=== PATIENT | male | born 1960 | race Caucasian/White ===

== ENCOUNTER → 2016-11-24 | Outpatient (CLI) | payer BC, OTHER ==
--- NOTE | 2016-11-24 15:14 | RADONC ---
RADIATION ONCOLOGY CONSULTATION: DATE: 11/24/2016 CHART NUMBER: [id number] DIAGNOSIS: Prostate cancer. STAGE: II B, [id number] ECOG PERFORMANCE STATUS: 0 Mr. 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 HISTORY OF PRESENT ILLNESS: The patient was in his usual state of health but was found to have a rising PSA level which reached 2.78. On 08/26/2016, the patient underwent prostatic needle biopsy and pathology revealed a Mcdonald score 7 (3-4) adenocarcinoma of prostate. Tumor involved both the left and right side of the prostate. The patient has done well since surgery and is now presenting for discussion of definitive external beam radiation therapy with IMRT/IGRT versus a robotic-assisted surgical resection. PAST MEDICAL HISTORY: The patient's past medical history is positive for some anxiety, depression and bipolar disorder. He has had previous right foot surgery and right hernia surgery. ALLERGIES: The patient has NO KNOWN DRUG ALLERGIES. SOCIAL HISTORY: The patient smokes one pack of cigarettes per day for the last 28 years. He does not abuse alcohol. FAMILY HISTORY: The patient's family history is unknown. REVIEW OF SYSTEMS: The patient's review of systems is positive for some occasional dizziness, anxiety and depression, decreased energy and occasional left lower back pain. He also has occasional left hip pain. He wears glasses. He denies nausea, vomiting, fevers, chills, night sweats, diplopia, headaches, chest pain, rectal bleeding, urinary or bowel difficulties, bone pain other than his low back pain and neurological problems. PHYSICAL EXAMINATION: The patient is a well-developed, well-nourished male in no acute distress. HEENT exam is normocephalic, atraumatic. Extraocular movements are intact. There is no palpable cervical, supraclavicular, infraclavicular, axillary, or inguinal lymphadenopathy present. Lungs are clear to auscultation and percussion. Heart has a regular rate and rhythm. Abdomen is benign with no hepatosplenomegaly, masses, or tenderness. Rectal examination reveals a normal anal sphincter tone. His prostate is smooth with no evidence of nodularity. Skeletal examination reveals no tenderness to pressure or percussion of the bony skeleton. Extremities reveal no clubbing, cyanosis, or edema. Neurologic exam is grossly intact, as is the remainder of the physical examination. MEDICAL NECESSITY: IMRT/IGRT is clinically indicated for the highly conformal dose planning required. The target volume is in close proximity to critical structures, such as the rectum, bladder, small bowel, and femoral heads. The volume of interest must be covered with narrow margins to adequately protect immediately adjacent structures. The plan requires interpretation of complex testing such as CT localization. As noted above, special planning (IMRT) and localizing (IGRT) is required and essential to maximally protect sensitive normal tissue structures which cannot be accomplished using conventional 3-dimensional planning. ASSESSMENT: Clearly the patient is a candidate for external beam radiation therapy and I have so informed him. I have discussed with the patient in detail the potential benefits as well as possible acute and chronic sequelae of external beam radiation therapy. We have discussed logistics of treatment planning, simulation and subsequent fractionated daily radiation treatment. In addition, we discussed his alternative treatment such as surgery. Again we discussed in length the potential benefits and possible sequelae of surgical intervention as well. I made clear to the patient that I think he would be a candidate for either modality. The patient has not yet made up his mind as to which treatment he desires. In light of this, I have not scheduled him for anything in our office at this time. I let him know that we are available to him at anytime if he decides he wants treatment here. He told me he would be calling us when he makes a decision. We also discussed the placement of fiducial markers, which would occur before initiation of treatment planning in our office should he choose definitive external beam radiation. cc: Avel Varela Jr, MD Po Lam, MD Neil F Mariados, MD
--- NOTE | 2017-02-17 07:58 | RADONC ---
RADIATION ONCOLOGY PROGRESS NOTE DATE: 02/15/2017 CHART NUMBER: [id number] Mr. Devine is presently at a dose of 540 cGy to his prostate and is tolerating treatments quite well at this point with no complaints related to his radiation therapy. He is having no urinary or bowel difficulties and no bone pain. The patient's review of systems is noncontributory. He denies nausea, vomiting, fevers, chills, night sweats, diplopia, headaches, anxiety or depression, anorexia, weight loss, visual disturbances, chest pain, urinary or bowel difficulties, bone pain, or neurological problems. PHYSICAL EXAMINATION: The patient's skin is in good condition with no evidence of radiation change present. There is no moist or dry desquamation. The remainder of his physical exam remains unchanged. Mr. Devine is tolerating treatments quite well and radiation will continue as scheduled.
== END ==
LOC: M ONCR 13:01
PROVIDERS: ATTEND Radiology Radiation Oncology
DX: C61 Malignant neoplasm of prostate (principal)

== ENCOUNTER 2017-01-25 11:10 | Outpatient (RCR) | payer BC, OTHER ==
--- NOTE | 2017-01-26 07:23 | RADONC ---
RADIATION ONCOLOGY SIMULATION NOTE DATE: 01/25/2017 CHART NUMBER: [id number] Mr. Devine was taken to the CT scan for CT simulation of his prostate field. CT was accomplished without difficulty or discomfort. Radiation treatment planning is underway and radiation treatments will begin subsequently. An immobilization device was created without difficulty or discomfort. It will be used throughout the course of treatment. I was physically present throughout the course of CT simulation.
== END 2017-02-16 ==
LOC: M ONCR 11:10
PROVIDERS: ATTEND Radiology Radiation Oncology
DX: C61 Malignant neoplasm of prostate (principal)

== ENCOUNTER → 2017-01-25 | Outpatient (CLI) | payer BC, OTHER ==
[2017-01-25 11:55] LABS: MEAN CORPUSCULAR HEMOGLOBIN 31.4 pg (27.0-33.0); MEAN CORPUSCULAR HGB CONC 33.5 g/dl (32.0-36.5); MEAN CORPUSCULAR VOLUME 93.7 fl (80.0-96.0); RED CELL DISTRIBUTION WIDTH 12.3 % (11.5-14.5); WHITE BLOOD COUNT 9.9 10^3/uL (4.0-10.0)
== END ==
LOC: M RAD 10:30
PROVIDERS: ATTEND Radiology Radiation Oncology
DX: C61 Malignant neoplasm of prostate (principal)

== ENCOUNTER 2017-02-17 14:58 | Outpatient (RCR) | payer BC, OTHER ==
--- NOTE | 2017-02-23 16:35 | RADONC ---
RADIATION ONCOLOGY PROGRESS NOTE DATE: 02/22/2017 CHART NUMBER: [id number]. PROGRESS NOTE: Mr. Devine is presently a dose of 1440 cGy to his prostate and is tolerating treatments quite well at this point with no complaints related to his radiation therapy. He is having no urinary or bowel difficulties and no bone pain. REVIEW OF SYSTEMS: The patient's review of systems is noncontributory. Denies nausea, vomiting, fevers, chills, night sweats, diplopia, headaches, anxiety or depression, anorexia, weight loss, visual disturbances, chest pain, urinary or bowel difficulties, bone pain, or neurological problems. PHYSICAL EXAMINATION: The patient's skin is in good condition with no evidence of radiation change present. There is no moist or dry desquamation. The remainder of his physical exam remains unchanged. Mr. Devine is tolerating treatments quite well and radiation will continue as scheduled.
--- NOTE | 2017-03-02 07:41 | RADONC ---
RADIATION ONCOLOGY PROGRESS NOTE DATE: 03/01/2017 CHART NUMBER: [id number] Mr. Devine is presently at a dose of 2340 cGy to his prostate and is tolerating treatments quite well at this point with no difficulties related to his radiation therapy. He is having no urinary or bowel problems and no bone pain. REVIEW OF SYSTEMS: The patient's review of systems is noncontributory. Denies nausea, vomiting, fevers, chills, night sweats, diplopia, headaches, anxiety or depression, anorexia, weight loss, visual disturbances, chest pain, urinary or bowel difficulties, bone pain, or neurological problems. PHYSICAL EXAMINATION: The patient's skin is in good condition with no evidence of radiation change present. There is no moist or dry desquamation. The remainder of his physical exam remains unchanged. Mr. Devine is tolerating treatments quite well and radiation will continue as scheduled.
--- NOTE | 2017-03-09 07:01 | RADONC ---
RADIATION ONCOLOGY PROGRESS NOTE DATE: 03/08/2017 CHART NUMBER: [id number] Mr. Devine is presently a dose of 3060 cGy to his prostate and is tolerating treatments quite well at this point with no complaints related to his radiation therapy. He is having no urinary or bowel difficulties and no bone pain. REVIEW OF SYSTEMS: The patient's review of systems is noncontributory. He denies nausea, vomiting, fevers, chills, night sweats, diplopia, headaches, anxiety or depression, anorexia, weight loss, visual disturbances, chest pain, urinary or bowel difficulties, bone pain or neurological problems. PHYSICAL EXAMINATION: The patient's skin is in good condition with no evidence of radiation change present. There is no moist or dry desquamation. The remainder of his physical exam remains unchanged. Mr. Devine is tolerating treatments quite well and radiation will continue as scheduled.
--- NOTE | 2017-03-16 05:52 | RADONC ---
RADIATION ONCOLOGY PROGRESS NOTE DATE: 03/15/2017 CHART NUMBER: [id number] Mr. Devine is presently at a dose of 3600 cGy to his prostate and is tolerating treatments quite well at this point with no complaints related to his radiation therapy. He is having no urinary or bowel difficulties. No bone pain. The patient's review of systems is noncontributory. He denies nausea, vomiting, fevers, chills, night sweats, diplopia, headaches, anxiety or depression, anorexia, weight loss, visual disturbances, chest pain, urinary or bowel difficulties, bone pain, or neurological problems. PHYSICAL EXAMINATION: The patient's skin is in good condition with no evidence of radiation change present. There is no moist or dry desquamation. The remainder of his physical exam remains unchanged. Mr. Devine is tolerating treatments quite well and radiation will continue as scheduled.
== END 2017-03-18 ==
LOC: M ONCR 14:58
PROVIDERS: ATTEND Radiology Radiation Oncology
DX: C61 Malignant neoplasm of prostate (principal)

== ENCOUNTER 2017-03-19 14:54 | Outpatient (RCR) | payer BC, OTHER | END 2017-04-18 | LOC: M ONCR 14:54 | DX: C61 Malignant neoplasm of prostate (principal) | CPT/HCPCS: 77300 ==

== ENCOUNTER 2017-04-20 12:03 | Outpatient (RCR) | payer BC, OTHER | END 2017-05-19 | LOC: M ONCR 12:03 | DX: C61 Malignant neoplasm of prostate (principal) | CPT/HCPCS: 77385 ==

== ENCOUNTER → 2017-06-02 | Outpatient (CLI) | payer BC, OTHER ==
[2017-06-02 16:09] LABS: PROSTATIC SPECIFIC AG MONITOR 1.95 NG/ML (< 4.0)
== END ==
LOC: M ONCR 14:45
DX: C61 Malignant neoplasm of prostate (principal)
CPT/HCPCS: 84153

== ENCOUNTER → 2018-06-14 | Outpatient (CLI) | payer BC, OTHER | LOC: M LAB 13:38 | PROVIDERS: ATTEND Radiology Radiation Oncology | DX: C61 Malignant neoplasm of prostate (principal) ==

== ENCOUNTER → 2018-06-15 | Outpatient (CLI) | payer BC, OTHER ==
--- NOTE | 2018-06-20 09:26 | RADONC ---
RADIATION ONCOLOGY FOLLOWUP NOTE DATE: 06/15/2018 CHART NUMBER: [id number] DIAGNOSIS: Prostate cancer. STAGE: IIB, [id number]. ECOG PERFORMANCE STATUS: 0. FOLLOWUP NOTE: Mr. Devine is a very pleasant 57-year-old white male with the diagnosis of a stage IIB, [id number], moderate to poorly differentiated [place] score 7 (3-4) adenocarcinoma of prostate who is presenting to us today for routine followup visit 1 year and 2 months post completion of external beam radiation therapy. The patient presents today reporting that he is doing quite well with no complaints at this time related to his radiation therapy or disease. He is having no urinary or bowel difficulties and no bone pain. The patient's review of systems is noncontributory. He denies nausea, vomiting, fevers, chills, night sweats, diplopia, headaches, anxiety or depression, anorexia, weight loss, visual disturbances, chest pain, urinary or bowel difficulties, bone pain, or neurological problems. PHYSICAL EXAMINATION: The patient is a well-developed, well-nourished male in no acute distress. HEENT exam is normocephalic, atraumatic. Extraocular movements are intact. There is no palpable cervical, supraclavicular, infraclavicular, axillary, or inguinal lymphadenopathy present. Lungs are clear to auscultation and percussion. Heart has a regular rate and rhythm. Abdomen is benign with no hepatosplenomegaly, masses, or tenderness. Rectal examination reveals a normal anal sphincter tone. His prostate is smooth with no evidence of nodularity. Skeletal examination reveals no tenderness to pressure or percussion of the bony skeleton. Extremities reveal no clubbing, cyanosis, or edema. Neurologic exam is grossly intact as is the remainder of the physical examination. ASSESSMENT: The patient is clinically TOSHIA at this time and will be seen by us again in 6 months for further followup. He will also continue to be followed by his other physicians as well. cc: Avel Varela Jr, MD Po Lam, MD Neil F Mariados, MD
== END ==
LOC: M ONCR 14:24
PROVIDERS: ATTEND Radiology Radiation Oncology
DX: C61 Malignant neoplasm of prostate (principal)

== ENCOUNTER → 2018-12-12 | Outpatient (CLI) | payer BC, OTHER | LOC: M LAB 13:16 | PROVIDERS: ATTEND Radiology Radiation Oncology | DX: C61 Malignant neoplasm of prostate (principal) ==

== ENCOUNTER → 2018-12-14 | Outpatient (CLI) | payer BC, OTHER ==
--- NOTE | 2018-12-16 06:26 | RADONC ---
RADIATION ONCOLOGY FOLLOW UP NOTE DATE: 12/14/2018 CHART #: [id number] DIAGNOSIS: Prostate cancer. STAGE: II B, [id number]. ECOG PERFORMANCE STATUS: 0. FOLLOWUP NOTE: Mr. Devine is very pleasant 58-year-old white male with the diagnosis of a stage II B, [id number], moderate to poorly differentiated Carrie score 7 (3-4) adenocarcinoma of the prostate who is presenting to us today for routine followup visit 8 months post completion of external beam radiation therapy. The patient presents today reporting that he is doing quite well with no complaints at this time related to his radiation therapy or disease. He has no urinary or bowel difficulties. No bone pain. REVIEW OF SYSTEMS: The patient's review of systems is noncontributory. Denies nausea, vomiting, fevers, chills, night sweats, diplopia, headaches, anxiety or depression, anorexia, weight loss, visual disturbances, chest pain, urinary or bowel difficulties, bone pain, or neurological problems. PHYSICAL EXAMINATION: The patient is a well-developed, well-nourished male in no acute distress. HEENT exam is normocephalic, atraumatic. Extraocular movements are intact. There is no palpable cervical, supraclavicular, infraclavicular, axillary, or inguinal lymphadenopathy present. Lungs are clear to auscultation and percussion. Heart has a regular rate and rhythm. Abdomen is benign with no hepatosplenomegaly, masses, or tenderness. Rectal examination reveals a normal anal sphincter tone. His prostate is smooth with no evidence of nodularity. Skeletal examination reveals no tenderness to pressure or percussion of the bony skeleton. Extremities reveal no clubbing, cyanosis, or edema. Neurologic exam is grossly intact, as is the remainder of the physical examination. ASSESSMENT: The patient is clinically TOSHIA at this time and will be seen by us again in 6 months for further followup. He will also continue to be followed by his other physicians as well. cc: Avel Varela Jr, MD Po Lam, MD Neil F Mariados, MD
== END ==
LOC: M ONCR 13:56
PROVIDERS: ATTEND Radiology Radiation Oncology
DX: C61 Malignant neoplasm of prostate (principal)

== ENCOUNTER → 2019-06-06 | Outpatient (CLI) | payer BC, OTHER | LOC: M LAB 10:21 | PROVIDERS: ATTEND Radiology Radiation Oncology | DX: C61 Malignant neoplasm of prostate (principal) ==

== ENCOUNTER → 2019-06-07 | Outpatient (CLI) | payer BC, OTHER ==
--- NOTE | 2019-06-08 14:31 | RADONC ---
RADIATION ONCOLOGY DATE: 06/07/2019 CHART NUMBER: [id number] DIAGNOSIS: Prostate CA. STAGE: IIB, [id number]. ECOG PERFORMANCE STATUS: 0 Mr. Devine is a very pleasant 58-year-old gentleman who carries a diagnosis of a stage IIB prostate CA, Carrie score of 7 (3+4). His pretreatment PSA was 7.28. He completed radiation therapy on April 22, 2017. INTERVAL HISTORY: He has been doing very well without any issues. The most recent PSA on June 06, 2019 is reported to be 0.89. He denies any urinary symptoms. No bowel problems. He denies bone pain. PHYSICAL EXAMINATION: ECOG performance status is 0. VITAL SIGNS: He weighs 189.8 pounds. Temperature 98.3, pulse 101, respirations 16, oxygen saturation 97% in room air. General: well developed nourished male not in apparent distress RESPIRATORY: cleaar auscultaion CARDIOVASCULAR: regular rhythm and rate EXYTEMITIES : no edema, cyanosis MUSCULOSKELETAL: no bone tenderness over the spine and rib cages ASSESSMENT/RECOMMENDATIONS: Mr. Devine is a 58-year-old gentleman who carries a diagnosis of stage IIIB prostate CA, Carrie score of 7 (3+4) and PSA of 7.28. He completed radiation therapy on April 22, 2017. He has been doing very well without any /GI symptoms. No bone pain. He is enjoying ice fishing. His most recent PSA on June 06, 2019 was 0.87. He is being followed by his primary care. He was advised to continue his care with his physicians and he was also asked to return here in six months or sooner if it is needed. FIORELLA
== END ==
LOC: M ONCR 12:56
PROVIDERS: ATTEND Radiology Radiation Oncology
DX: C61 Malignant neoplasm of prostate (principal); Z92.3 Personal history of irradiation

== ENCOUNTER → 2024-03-24 | Outpatient (REF) | payer OTHER, BC | LOC: M LAB REF 16:18 | PROVIDERS: ATTEND Internal Medicine | DX: R53.83 Other fatigue (principal) ==